=== PATIENT | male | born 1955 | race Caucasian/White ===

== ENCOUNTER 2021-08-06 22:14 | Emergency (ER) | payer OTHER ==
[~2021-08-06] VITALS: Ht 193 cm; Wt 117.5 kg
[2021-08-06] MEDS ORDERED: BENICAR5 MG (22:55)
[2021-08-06] MEDS ORDERED: TRULICITY1.5 MG/0.5 SC (22:58)
[2021-08-06 23:04] LABS: BASO # 0.07 (0.02-0.10); EOS # 0.21 (0.04-0.40); EOS % 2.3 % (0.0-4.0); HEMATOCRIT 46.7 % (42.0-52.0); HEMOGLOBIN 15.6 g/dL (13.5-18.0); MEAN CELL VOLUME 93 fl (78-100); MEAN CORPUSCULAR HEMOGLOBIN 31 pg (27-31); MEAN CORPUSCULAR HGB CONC 33 g/dL (33-37); MEAN PLATELET VOLUME 9.4 fl (7.4-10.4); MONO # 0.81 (0.20-0.80); NEU # 5.28 (1.40-6.50); PLATELET COUNT 173 K/mm3 (130-400); RED BLOOD COUNT 5.05 M/mm3 (4.20-5.60); RED CELL DISTRIBUTION WIDTH 12.2 % (11.5-14.5)
[2021-08-06 23:09] LABS: ALBUMIN 4.1 g/dL (3.4-4.8)
[2021-08-06 23:10] LABS: POTASSIUM 3.9 mmol/L (3.5-5.1)
[2021-08-06 23:11] LABS: CALCIUM 9.6 mg/dL (8.3-10.5)
[2021-08-06 23:12] LABS: TOTAL PROTEIN 7.1 g/dL (6.2-8.1)
[2021-08-06 23:14] LABS: TOTAL BILIRUBIN 0.5 mg/dL (0.2-1.2)
[2021-08-07] MEDS ORDERED: GOOD NEIGHBOR P20 M1 PO (03:06)
[2021-08-07 03:24] VITALS: BP 114/75
== END 2021-08-07 03:24 | disposition home or self-care (01) ==
LOC: ED 22:14
PROVIDERS: Family Medicine
DX: K21.9 Gastro-esophageal reflux disease without esophagitis (principal); E11.9 Type 2 diabetes mellitus without complications; I10 Essential (primary) hypertension; Z79.84 Long term (current) use of oral hypoglycemic drugs; Z79.899 Other long term (current) drug therapy